=== PATIENT | male | born 1995 | race Caucasian/White ===

== ENCOUNTER 2021-03-07 09:19 | Emergency (ER) | payer OTHER, SELFPAY ==
[2021-03-07 09:28] VITALS: BP 149/92; PULSE 84; RESP 18; TEMP 36.7; O2SAT 97; BMI 24.4
--- NOTE | 2021-03-07 09:40 | ED_ITS ---
HPI - URI/Sore Throat General Chief Complaint: Upper Respiratory Symptoms Stated Complaint: flu like symptoms Time Seen by Provider: 03/07/21 09:37 Source: patient Mode of arrival: ambulatory History of Present Illness HPI Narrative: 25 y.o M with no significant PMH presenting to the ED with URI symptoms x 3 days. He endorses nasal congestion, cough, throat itching, body aches. He did vomit last Monday but has not had any recurrences. He took Ibuprofen 3 days ago and has not taken any other medications for his symptoms. He denies fevers, rash, abd pain, dysuria, vomiting, diarrhea. Related Data Previous Rx's Medication Instructions Recorded benzonatate 100 mg capsule 100 mg PO TID PRN 7 Days #21 cap 03/07/21 (Tessalvera Rosas) ibuprofen 600 mg tablet 600 mg PO Q6H PRN 7 Days #28 tab 03/07/21 Allergies Allergy/AdvReac Type Severity Reaction Status Date / Time No Known Allergies Allergy Unverified 04/02/20 18:48 Review of Systems Constitutional: Constitutional: Reports body ache(s), Denies fever(s) and Reports headache(s) Eyes: Eyes: Reports no additional eye complaints ENT: Reports headache(s), Reports nasal congestion and Denies sore throat Cardiovascular: Cardiovascular: Denies chest pain and Denies dyspnea Respiratory: Respiratory: Reports cough and Denies dyspnea Gastrointestinal: Gastrointestinal: Denies abdominal pain and Denies diarrhea Genitourinary: Genitourinary: Denies hematuria and Denies dysuria Musculoskeletal: Musculoskeletal: Reports myalgias and Denies arthralgias Neurologic: Reports headache(s) Psychiatric: Psychiatric: Reports no additional psychiatric complaints Hematologic/Lymphatic: Hematologic/Lymphatic: Denies easy bleeding Allergic/Immunologic: Allergic/Immunologic: Reports no additional allergic/immunologic complaints [facility] Past Medical History Medical History (Updated 03/07/21 @ 09:48 by STEVE Rico) No known health problems Social History Social History (Updated 03/07/21 @ 09:43 by STEVE Rico) Patient Tobacco Use Status: Current everyday Tobacco user Substance Use Type: Marijuana Advance Directives: No Advance Directives Information Provided: No Physical Exam Vital Signs: Vital Signs: Last Vital Signs Temp 98.0 F 03/07/21 09:28 Pulse 84 03/07/21 09:28 Resp 18 03/07/21 09:28 BP 149/92 H 03/07/21 09:28 Pulse Ox 97 03/07/21 09:28 Body Mass Index 24.4 Const: Other: sitting upright in chair General: cooperative Orientation/consciousness: patient oriented x3 HENMT: Other: head- normocephalic no facial swelling no pharyngeal erythema or tonsilar exudates, no uvula deviation, no oral sores no facial swelling Eyes: Pupils: Equal, round and reactive pupils present Neck: Neck: Yes full ROM, Yes no meningeal signs, Yes trachea midline and Yes supple Resp: Effort & Inspection: normal respiratory effort and able to speak in complete sentences Auscultation: clear to auscultation bilaterally Cardio: Rate: regular rate Rhythm: regular rhythm GI: Inspection: No distended Back/Spine/Pelvis: Other: normal ROM Skin: General skin exam: no rashes or lesions noted Neuro: General: patient oriented x3 and no meningeal signs Cranial nerves: Yes Equal, round and reactive pupils present Extrem: General: Yes full ROM Psych: Appearance: grossly normal MDM - URI/Sore Throat MDM Narrative Medical decision making narrative: 25 y.o. M presenting to the ED with URI symptoms x 3 days VS Stable, not toxic appearing, hemodynamically stable Will plan for COVID swab. Since pt. is not hypoxic, no adeventatious lung sounds, sound PNA. No evidence of strep pharyngitis, pharynx is not erythematous, no lesions. No signs of systemic illness. Pt. does have clear discharge from bilateral nares- doubt sinusitis. No c/o ear pain- doubt OM/OE. Will give supportive care with tylenol and ibuprofen. No signs of dehydration Return precautions provided Lab Data Lab results narrative: COVID swab negative. WIll discharge with symptomatic management. Labs: Lab Results 03/07/21 Range/Units 09:41 COVID-19 (JOVANNA) Negative (Negative) COVID-19 Clin Com See Note Discharge Plan Discharge Clinical Impression: Upper respiratory infection, Viral syndrome Patient Disposition: Home, Self-Care Instructions: Viral Syndrome (ED) Additional Instructions: Please return to the emergency department if your symptoms worsen, increased symptoms, fever, trouble breathing, chest pain, vomiting, abdominal pain, rash, weakness, dizziness, or any other concerning symptoms. Drink plenty of fluids and get rest. Keep yourself hydrated. Your COVID swab was negative. Prescriptions: New ibuprofen 600 mg tablet 600 mg PO Q6H PRN (Reason: pain) 7 Days Qty: 28 RF: 0 benzonatate [Tessalon Perles] 100 mg capsule 100 mg PO TID PRN (Reason: cough) 7 Days Qty: 21 RF: 0 Stand Alone Forms: Work/School Release Interventions: ED Discharge Assessment Last Done: 03/07/21 10:17 Discharge Date/Time: 03/07/21 10:18
[2021-03-07] MEDS: Ibuprofen 600 MG TABLET PO (09:44)
[2021-03-07] MEDS: Acetaminophen 325 MG TABLET 650 MG PO (09:45)
[2021-03-07 10:00] LABS: COVID-19 Test Negative (Negative); IDNOW Serial# 08D9AD1C
== END 2021-03-07 10:18 | disposition home or self-care (01) ==
PROVIDERS: Physician Assistant Medical; Emergency Provider Emergency Medicine
DX: J06.9 Acute upper respiratory infection, unspecified (principal); Z79.899 Other long term (current) drug therapy; Z20.822 Contact with and (suspected) exposure to COVID-19
CPT/HCPCS: 36415; 87635; 99283

== ENCOUNTER 2021-04-14 14:20 | Outpatient (REF) | payer OTHER, SELFPAY | END 2021-04-14 14:21 | disposition home or self-care (01) | LOC: HO.LAB 14:20 | PROVIDERS: Visit Provider Internal Medicine | DX: Z20.822 Contact with and (suspected) exposure to COVID-19 (principal) | CPT/HCPCS: C9803; U0003; U0005 ==

== ENCOUNTER 2021-07-24 19:23 | Emergency (ER) | payer OTHER, SELFPAY ==
[2021-07-24 19:34] VITALS: BP 116/73; BP 126/71; PULSE 105; PULSE 82; RESP 18; TEMP 37; O2SAT 98; BMI 29.0
[2021-07-24 19:58] LABS: COVID-19 Test Positive (Negative)
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
== END 2021-07-24 22:04 | disposition home or self-care (01) ==
PROVIDERS: Emergency Provider Emergency Medicine
DX: U07.1 COVID-19 (principal); S40.812A Abrasion of left upper arm, initial encounter; S40.811A Abrasion of right upper arm, initial encounter; X58.XXXA Exposure to other specified factors, initial encounter; R45.851 Suicidal ideations; R44.0 Auditory hallucinations; F17.200 Nicotine dependence, unspecified, uncomplicated; F12.90 Cannabis use, unspecified, uncomplicated; Y93.89 Activity, other specified; Y92.9 Unspecified place or not applicable; Y99.9 Unspecified external cause status
CPT/HCPCS: 87635; 99283

== ENCOUNTER 2022-04-27 09:20 | Emergency (ER) | payer OTHER, SELFPAY ==
[2022-04-27 09:23] VITALS: BP 127/73; PULSE 65; RESP 16; TEMP 36.6; O2SAT 99; BMI 28.3
--- NOTE | 2022-04-27 09:28 | ED_ITS ---
HPI - General Adult General Chief complaint: Nausea/Vomiting/Diarrhea Stated complaint: 1x week, upset stomach Time Seen by Provider: 04/27/22 09:28 Source: patient Mode of arrival: ambulatory Limitations: no limitations History of Present Illness HPI narrative: Patient is a 26 year old assigned male with a no reported medical history presenting to the emergency department today with nausea for the last week. Patient states that over the last week he has felt unwell with nausea. Patient states that his girlfriend has also been sick with nausea over the last week. Patient denies any dizziness, lightheadedness, abdominal pain, nausea, fever, chills, blurry vision, double vision, loss of vision, chest pain, difficulty breathing, shortness of breath, back pain, night sweats, pain with urination, i ncreased urinary frequency, increased urinary urgency, blood in his urine or stool, syncope or a near syncopal episode, recent trauma or falls, bowel incontinence, bladder incontinence, bowel retention, bladder retention, or any other complaints at this time. Onset (ago): week(s) (1) Severity: mild Severity scale (1-10): 2 Relieving factors: none Exacerbating factors: none Associated symptoms: nausea/vomiting Treatments prior to arrival: none Related Data Previous Rx's Medication Instructions Recorded benzonatate 100 mg capsule 100 mg PO TID PRN cough 7 days #21 03/07/21 (Jalyn Rosas) caps ibuprofen 600 mg tablet 600 mg PO Q6H PRN pain 7 days #28 03/07/21 tabs ondansetron 4 mg disintegrating 4 mg PO Q8H 3 days #9 tabs 04/27/22 tablet Allergies Allergy/AdvReac Type Severity Reaction Status Date / Time No Known Allergies Allergy Verified 04/27/22 09:23 Review of Systems Constitutional: Constitutional: Reports no additional constitutional complaints, Denies chills, Denies fever(s) and Denies night sweats Eyes: Eyes: Reports no additional eye complaints, Denies blurry vision, Denies change in vision, Denies diplopia, Denies eye discharge, Denies loss of vision and Denies eye pain ENT: Denies dizziness Cardiovascular: Cardiovascular: Reports no additional cardiovascular complaints, Denies chest pain, Denies lightheadedness, Denies Loss of Consciousness and Denies dyspnea Respiratory: Respiratory: Reports no additional respiratory complaints and Denies dyspnea Gastrointestinal: Gastrointestinal: Reports no additional gastrointestinal complaints, Denies abdominal pain, Denies melena, Denies hematochezia, Denies change in bowel habits, Denies change in stool character and Reports nausea Genitourinary: Genitourinary: Reports no additional male genitourinary complaints, Denies hematuria, Denies oliguria, Denies difficulty urinating, Denies dysuria, Denies urinary frequency, Denies urinary hesitancy, Denies urinary incontinence and Denies urinary urgency Musculoskeletal: Musculoskeletal: Reports no additional musculoskeletal complaints, Denies numbness and Denies tingling Neurologic: Denies dizziness, Denies loss of vision, Denies numbness and Denies tingling Psychiatric: Psychiatric: Reports no additional psychiatric complaints Endocrine: Endocrine: Reports no additional endocrine complaints Hematologic/Lymphatic: Hematologic/Lymphatic: Reports no additional hematologic/lymphatic complaints Allergic/Immunologic: Allergic/Immunologic: Reports no additional allergic/immunologic complaints PMFSH Past Medical History Attestation statement: The following information was validated with the patient. Source: old records reviewed Medical History No known health problems Social History Social History Patient Tobacco Use Status: Current everyday Tobacco user Substance Use Type: Marijuana Advance Directives: No Physical Exam ED Vital Signs: Vital Signs - 24 hr 04/27/22 09:23 Temperature 97.9 F Pulse Rate 65 Respiratory Rate 16 Blood Pressure 127/73 Pulse Oximetry 99 Oxygen Delivery Method Room Air BMI result Body Mass Index 28.3 Const General: cooperative, no acute distress, alert and awake Nutritional Appearance: well nourished Orientation/consciousness: patient oriented x3 Limitations: no limitations [facility] Head: Yes normal to inspection and Yes atraumatic Ears: hearing grossly normal bilaterally and external ears normal General nose exam: Normal external nose present, no nasal discharge noted and no epistaxis Face and sinus: Yes normal facial exam, No abrasion and No laceration Mouth: Normal oral and palatal mucosa present, no drooling and no muffled voice Eyes General: appearance normal, both eyes and all related structures Periorbital: periorbital findings normal Eyelids: Yes eyelids normal Conjunctivae: conjunctivae normal Pupils: Equal, round and reactive pupils present EOM: EOMs intact bilaterally Neck Neck: Yes normal visual inspection, Yes full ROM and Yes no lymphadenopathy Chest Chest palpation & inspection: normal inspection of the chest Resp Effort & Inspection: normal respiratory effort and able to speak in complete sentences Auscultation: clear to auscultation bilaterally Cardio Rate: regular rate Rhythm: regular rhythm GI Inspection: Yes normal to inspection Palpation (GI): Soft to palpation, not firm, nontender and no guarding Neuro General: patient oriented x3 and moves all extremities Cranial nerves: Yes Equal, round and reactive pupils present Cognition (Neuro): normal cognition Motor exam (neuro): 5/5 motor strength present throughout Sensory Exam: Normal double simultaneous stimulation for sensation Coordination: [id number] test normal Extrem General: Yes normal to inspection, Yes full ROM and Yes capillary refill normal Psych Appearance: grossly normal Mental Status: mental status grossly normal Affect: normal affect Attitude: cooperative Thought process: Normal thought process present Thought content: Normal thought content present Insight: Good insight present (Psych) Medical Decision Making MDM Narrative Medical decision making narrative: Patient is a 26 year old assigned male with a no medical history presenting to the emergency department today with nausea. Patient's physical exam was unremarkable. Patient's rapid COVID-19 test was negative. I explained my physical exam findings as well as all test results to the patient. I answered all questions asked by the patient. Patient received ODT Zofran which he stated helped his symptoms significantly. I stressed the importance of the patient taking his medication as prescribed. I stressed the importance of the patient following up with his primary care provider. I stressed the importance of the patient returning to the emergency department immediately if his symptoms were to worsen or if he were to develop any dizziness, shortness of breath, difficulty breathing, chest pain, blurry vision, loss of vision, nausea, vomiting, abdominal pain, fever, chills, back pain, or any other complaints. Patient verbalized agreement and understanding with this treatment plan and discharge. Medical Records Medical records reviewed: Yes I reviewed the patient's medical records. Lab Data Lab results reviewed: Yes I reviewed the patient's lab results. Labs: Lab Results 04/27/22 Range/Units 09:26 COVID-19 (JOVANNA) Negative (Negative) COVID-19 Clin Com See Note Discharge Plan Discharge Clinical Impression: Nausea Patient Disposition: Home, Self-Care Instructions: Acute Nausea and Vomiting (ED) Additional Instructions: Follow up with your primary care provider. Return to the emergency department immediately if your symptoms worsen or if you develop any dizziness, shortness of breath, difficulty breathing, chest pain, blurry vision, loss of vision, nausea, vomiting, abdominal pain, fever, chills, back pain, or any other complaints. Prescriptions: New ondansetron 4 mg tablet,disintegrating 4 mg PO Q8H 3 Days Qty: 9 0RF No Action ibuprofen 600 mg tablet 600 mg PO Q6H PRN (Reason: pain) 7 Days Qty: 28 0RF benzonatate [Tessalon Perles] 100 mg capsule 100 mg PO TID PRN (Reason: cough) 7 Days Qty: 21 0RF Referrals: [facility] [Provider Group] (Call to establish and follow up with a primary care provider. If you have a primary care provider, please follow up with them. ) [facility] [[facility]] (Call to establish and follow up with a primary care provider. If you have a primary care provider, please follow up with them. ) [facility] [[facility]] (Call to establish and follow up with a primary care provider. If you have a primary care provider, please follow up with them. ) Stand Alone Forms: Work/School Release Interventions: ED Discharge Assessment Last Done: 04/27/22 10:14 Discharge Date/Time: 04/27/22 10:16 Print Language: Kinyarwanda
[2022-04-27 09:45] LABS: COVID-19 Test Negative (Negative); IDNOW Serial# 16C4AD1C
[2022-04-27] MEDS: Ondansetron ODT 4 MG TAB.RAPDIS TRANSLINGU (10:06)
== END 2022-04-27 10:16 | disposition home or self-care (01) ==
PROVIDERS: Emergency Provider Emergency Medicine
DX: R11.2 Nausea with vomiting, unspecified (principal); Z79.899 Other long term (current) drug therapy; Z20.822 Contact with and (suspected) exposure to COVID-19
CPT/HCPCS: 87635; 99282; 99283

== ENCOUNTER 2022-04-27 15:38 | Emergency (ER) | payer OTHER, SELFPAY ==
[2022-04-27 17:28] VITALS: BP 135/66; PULSE 77; RESP 16; TEMP 36.7; O2SAT 99; BMI 28.3
--- NOTE | 2022-04-27 17:59 | ED_ITS ---
HPI - General Adult General Chief complaint: General Medical Stated complaint: ? STD Check Time Seen by Provider: 04/27/22 17:54 Source: patient Mode of arrival: ambulatory Limitations: no limitations History of Present Illness HPI narrative: 26-year-old male presents to the ER for evaluation after he was exposed to Trichomonas. He states his girlfriend just tested positive for Trichomonas today. She was negative for all other STIs. She was there getting evaluated for a miscarriage. Patient denies any urethral discharge, dysuria, testicular pain, genital lesions. He was here earlier for nausea and diarrhea. He was tested for COVID and sent home. He reports no longer having diarrhea or vomiting because he has nothing in him. No fevers. No concern for any other STI. MD complaint: Possible STI Onset (ago): unknown Location: abdomen Radiation: non-radiation Severity: moderate Pain Consistency: intermittent Relieving factors: none Exacerbating factors: eating Associated symptoms: loss of appetite, malaise and nausea/vomiting Treatments prior to arrival: none Related Data Previous Rx's Medication Instructions Recorded benzonatate 100 mg capsule 100 mg PO TID PRN cough 7 days #21 03/07/21 (Tessalon Ralph) caps ibuprofen 600 mg tablet 600 mg PO Q6H PRN pain 7 days #28 03/07/21 tabs loperamide 2 mg capsule (Imodium 2 mg PO Q6H PRN loose stool #14 04/27/22 A-D) caps ondansetron 4 mg disintegrating 4 mg PO Q8H 3 days #9 tabs 04/27/22 tablet ondansetron 4 mg disintegrating 4 mg PO Q8H PRN nausea and 04/27/22 tablet vomiting #10 tabs Allergies Allergy/AdvReac Type Severity Reaction Status Date / Time No Known Allergies Allergy Verified 04/27/22 09:23 Review of Systems Review of Systems: Constitutional: No Fever, No Chills ENT/Mouth: No sore throat, No Rhinorrhea, No Swallowing Difficulty Cardiovascular: No Chest Pain, No SOB Respiratory: No Cough, No Sputum Gastrointestinal: + Nausea, + Vomiting, + Diarrhea, No abdominal Pain, No Hematochezia, No Melena Genitourinary: No Dysuria, No Urinary Frequency, No Hematuria Musculoskeletal: No joint pain, No Myalgias Skin: No Skin Lesions, No rash Neuro: No Weakness, No Dizziness, No Headache Psych: +Anxiety/Panic, No Depression Heme/Lymph: No Bruising, No Lymphadenopathy PMFSH Past Medical History Medical History No known health problems Social History Social History Patient Tobacco Use Status: Current everyday Tobacco user Substance Use Type: Marijuana Advance Directives: No Advance Directives Information Provided: No Physical Exam ED Vital Signs: Vital Signs - 24 hr 04/27/22 17:28 Temperature 98.1 F Pulse Rate 77 Respiratory Rate 16 Blood Pressure 135/66 Pulse Oximetry 99 Oxygen Delivery Method Room Air BMI result Body Mass Index 28.3 Course Course Course Narrative: 26-year-old male presents to the ER for evaluation of possible Trichomonas after his girlfriend tested positive for this earlier today. He is asymptomatic aside from nausea, vomiting and diarrhea. Unlikely to be related to trichomoniasis. His abdominal exam is benign. Will treat empirically for Trichomonas with flagyl 2g x1.. Will give p.o. trial here. If unable to tolerate will consider further testing and imaging. He is declining need for treatment of gonorrhea and chlamydia. He states his girlfriend was negative for these. Medical Decision Making Lab Data Labs: Lab Results 04/27/22 Range/Units 18:03 Urine Color Yellow Urine Appearance Clear Urine pH 7.0 (5.0-9.0) Ur Specific [place] >= 1.030 H (1.005-1.025) Urine Protein Negative (Neg-Trace) mg/dL Urine Glucose (UA) Negative (Negative) mg/dL Urine Ketones Trace (Negative) mg/dL Urine Blood Negative (Negative) Urine Nitrite Negative (Negative) Ur Leukocyte Esterase Negative (Negative) Discharge Plan Discharge Clinical Impression: Trichomonas exposure Patient Disposition: Home, Self-Care Instructions: Trichomoniasis (ED) Additional Instructions: You were treated for possible trichomonas today. The one dose of antibiotics you were given today should treat the infection. You were also tested for gonorrhea and chlamydia. We will not have the results of this for the next couple of days. If either of these are positive we will call you was started on the appropriate antibiotics. Recommending abstaining from sexual activity while these tests are pending. Stick to a bland diet while you are not feeling well. Take the prescribed loperamide as needed for loose stool. You can take the prescribed Zofran as needed for nausea. Rest and stay hydrated. If you develop new or worsening symptoms call 911 or come back to the ER for further evaluation. Prescriptions: New ondansetron 4 mg tablet,disintegrating 4 mg PO Q8H PRN (Reason: nausea and vomiting) Qty: 10 0RF loperamide [Imodium A-D] 2 mg capsule 2 mg PO Q6H PRN (Reason: loose stool) Qty: 14 0RF No Action ibuprofen 600 mg tablet 600 mg PO Q6H PRN (Reason: pain) 7 Days Qty: 28 0RF benzonatate [Tessalon Perles] 100 mg capsule 100 mg PO TID PRN (Reason: cough) 7 Days Qty: 21 0RF ondansetron 4 mg tablet,disintegrating 4 mg PO Q8H 3 Days Qty: 9 0RF
[2022-04-27 18:09] LABS: Appearance Urine Clear; Color Urine Yellow; Glucose Urine UA Negative (Negative); Leukocyte Esterase Urine Negative (Negative); Nitrite Urine Negative (Negative); Specific Gravity - Urine >= 1.030 (1.005-1.025); Urine Blood Negative (Negative); Urine Ketones Trace mg/dL (Negative); Urine Protein Negative (Neg-Trace)
[2022-04-27] MEDS: Ondansetron ODT 4 MG TAB.RAPDIS TRANSLINGU (18:21)
[2022-04-27] MEDS: metroNIDAZOLE 500 MG TABLET 2000 MG PO (19:00)
[2022-04-28 03:06] LABS: CT PCR NOT DETECTED (Not Detect.); NG PCR NOT DETECTED (Not Detect.)
== END 2022-04-27 19:17 | disposition home or self-care (01) ==
PROVIDERS: Physician Assistant; Emergency Provider Emergency Medicine
DX: Z20.2 Contact with and (suspected) exposure to infections with a predominantly sexual mode of transmission (principal); Z79.899 Other long term (current) drug therapy; F17.200 Nicotine dependence, unspecified, uncomplicated; Z71.6 Tobacco abuse counseling
CPT/HCPCS: 81003; 87491; 87591; 99282; 99283

== ENCOUNTER 2022-05-11 22:00 | Emergency (ER) | payer OTHER, SELFPAY ==
[2022-05-11 22:14] VITALS: BP 140/93; PULSE 68; RESP 17; TEMP 37.2; O2SAT 98; BMI 29.7
[2022-05-11 22:26] LABS: MANUAL DIFF FLAG NO
[2022-05-11 22:28] LABS: Basophils Percent Auto 0.4 % (0-2); Eosinophils Absolute Auto 0.2 X10*3/uL (0.0-0.4); Eosinophils Percent Auto 2.3 % (0-4); Hematocrit 44.1 % (42.0-52.0); Hemoglobin 14.8 g/dl (14.0-18.0); Imm Gran Abs Auto 0.03 X10*3/uL (0.00-0.03); Imm Gran Pct Auto 0.3 % (0.0-0.4); Lymphocytes Absolute Auto 3.3 X10*3/uL (1.2-4.9); Lymphocytes Percent Auto 31.4 % (20-40); Mean Corpuscular HGB Conc 33.6 g/dl (31.0-36.0); Mean Corpuscular Hemoglobin 29.7 pg (27.0-33.0); Mean Corpuscular Volume 88.4 fL (80.0-98.0); Mean Platelet Volume 9.3 fL (9.4-12.4); Monocytes Absolute Auto 0.6 X10*3/uL (0.1-1.2); Neutrophils Absolute Auto 6.3 x10*3/uL (2.0-8.3); Neutrophils Percent Auto 59.6 % (45-73); Platelet Count 317 X10*3/uL (160-400); Red Blood Count 4.99 X10*6/uL (4.60-5.80); Red Cell Distribution Width 12.9 % (11.0-16.0); White Blood Count 10.6 X10*3/uL (4.8-10.8)
[2022-05-11 22:44] LABS: Alanine Aminotransferase 15 U/L (0-40); Albumin Level 4.3 g/dL (3.5-5.0); Alkaline Phosphatase 76 U/L (39-117); Anion Gap 16 (12-20); Aspartate Amino Transferase 16 U/L (5-37); Bilirubin Total 0.4 mg/dL (0.0-1.0); Blood Urea Nitrogen 12 mg/dL (9-16); Calcium 9.1 mg/dL (8.4-10.2); Carbon Dioxide 23 mmol/L (22-29); Chloride 105 mmol/L (96-108); Creatinine Clr Calc Pharmacy 133.7; Estimated Glomerular Filt Rate > 60; Glucose Random 96 mg/dL (60-115); Sodium 140 mmol/L (135-145); Total Protein 7.1 g/dL (6.5-8.0)
[2022-05-11 23:09] LABS: COVID-19 Test Positive (Negative)
[2022-05-12] VITALS: BP 132/75; PULSE 72; RESP 18; TEMP 36.4; O2SAT 98
--- NOTE | 2022-05-12 00:12 | ED_ITS ---
HPI - URI/Sore Throat General Chief Complaint: Fever Stated Complaint: pain all over body Time Seen by Provider: 05/11/22 23:49 Source: patient Mode of arrival: ambulatory Limitations: no limitations History of Present Illness HPI Narrative: Patient is a 26-year-old male who presents to the emergency department for evaluation of body aches, subjective fevers, chills, nasal congestion, cough, lack of appetite, nausea. Symptoms started 2 days ago initially with body aches, additional symptoms began yesterday. Patient denies any known sick contacts. States he has been vaccinated for COVID-19 x 2, has had 2 prior COVID-19 infections. Related Data Previous Rx's Medication Instructions Recorded benzonatate 100 mg capsule 100 mg PO TID PRN cough 7 days #21 03/07/21 (Tespetty Rosas) caps ibuprofen 600 mg tablet 600 mg PO Q6H PRN pain 7 days #28 03/07/21 tabs loperamide 2 mg capsule (Imodium 2 mg PO Q6H PRN loose stool #14 04/27/22 A-D) caps ondansetron 4 mg disintegrating 4 mg PO Q8H 3 days #9 tabs 04/27/22 tablet ondansetron 4 mg disintegrating 4 mg PO Q8H PRN nausea and 04/27/22 tablet vomiting #10 tabs Allergies Allergy/AdvReac Type Severity Reaction Status Date / Time No Known Allergies Allergy Verified 04/27/22 09:23 Review of Systems Review of Systems: Constitutional: Positive subjective fever. Positive chills. No weakness. Positive fatigue. Positive body aches ENT/ Mouth: No Ear Pain, positive Nasal Congestion, positive sore throat, No Rhinorrhea, No Swallowing Difficulty Skin: No rash or itching. Cardiovascular: No chest pain. No palpitations. Respiratory: No shortness of breath. Positive cough. No sputum production. Gastrointestinal: No nausea. No vomiting. No diarrhea. No abdominal pain. Genitourinary: No burning micturition. No urinary frequency. Neurologic: No headache. No dizziness. No syncope. No numbness or tingling in the extremities. Musculoskeletal: Positive body aches Yes all other systems are reviewed and are negative PMFSH Past Medical History Attestation statement: The following information was validated with the patient. Source: old records reviewed Medical History No known health problems Social History Social History Patient Tobacco Use Status: Current everyday Tobacco user Substance Use Type: Marijuana Advance Directives: No Advance Directives Information Provided: No Physical Exam Vital Signs: Vital Signs: Last Vital Signs Temp 98.9 F 05/11/22 22:14 Pulse 68 05/11/22 22:14 Resp 17 05/11/22 22:14 BP 140/93 H 05/11/22 22:14 Pulse Ox 98 05/11/22 22:14 O2 Del Method 05/11/22 22:14 BMI result Body Mass Index 29.7 Appearance: Alert.?Oriented to person, place and time. No acute distress.?Normal affect. Eyes: Pupils equal, round and reactive to light.? ENT: TM normal bilaterally. Pharynx normal.?? Neck: Normal inspection.? Neck supple.??No cervical adenopathy CVS: Heart sounds normal. Normal heart rate and rhythm.? Pulses normal.?? Respiratory: No respiratory distress.? Lung sounds clear to auscultation bilaterally?? Abdomen: Soft and non-tender. Normoactive bowel sounds. Skin: Skin warm and dry.? Normal skin color.? ? Extremities: No lower extremity edema.? Neuro: Moves all extremities spontaneously. Sensation intact bilaterally. No motor deficits. Ambulates with normal steady gait. Course Course Course Narrative: Patient is a a 26-year-old male with no significant past medical history, presenting for evaluation of viral symptoms. COVID-19 testing is positive. Appears fatigued, afebrile, no tachycardia or tachypnea/hypoxia. Speaking clear full sentences, ambulatory with steady gait. CBC and CMP are overall unremarkable. Physical exam is overall unremarkable. Offered Paxlovid, patient declines. Discussed conservative treatment including rest, hydration, Tylenol/ibuprofen as needed for fever and body aches, saline nasal spray, humidifier, [id number] cold medication. Advised to follow-up with primary care provider as needed, discussed reasons to return back to the emergency department. All questions were answered. Patient discharged home in stable condition. Provided with a return to work note. MDM - URI/Sore Throat Medical Records Attestation: I reviewed the patient's medical records. Lab Data Attestation: I reviewed the patient's lab results. Result diagrams: 05/11/22 22:20 05/11/22 22:20 Labs: Lab Results 05/11/22 05/11/22 05/11/22 Range/Units 22:20 22:20 22:20 WBC 10.6 (4.8-10.8) X10*3/uL RBC 4.99 (4.60-5.80) X10*6/uL Hgb 14.8 (14.0-18.0) g/dl Hct 44.1 (42.0-52.0) % MCV 88.4 (80.0-98.0) fL MCH 29.7 (27.0-33.0) pg MCHC 33.6 (31.0-36.0) g/dl RDW 12.9 (11.0-16.0) % Plt Count 317 (160-400) X10*3/uL MPV 9.3 L (9.4-12.4) fL Immature Gran % (Auto) 0.3 (0.0-0.4) % Neut % (Auto) 59.6 (45-73) % Lymph % (Auto) 31.4 (20-40) % [place] % (Auto) 6.0 (2-11) % Eos % (Auto) 2.3 (0-4) % Baso % (Auto) 0.4 (0-2) % Lymph # (Auto) 3.3 (1.2-4.9) X10*3/uL [place] # (Auto) 0.6 (0.1-1.2) X10*3/uL Eos # (Auto) 0.2 (0.0-0.4) X10*3/uL Baso # (Auto) 0.0 (0.0-0.2) X10*3/uL Abs Immat Gran (auto) 0.03 (0.00-0.03) X10*3/uL Absolute Neuts (auto) 6.3 (2.0-8.3) x10*3/uL Absolute Nucleated RBC 0.000 (0.0-0.012) X10*3/uL Nucleated RBC % (auto) 0.0 (0.0-0.2) /100WBC Sodium 140 (135-145) mmol/L Potassium 4.0 (3.3-5.1) mmol/L Chloride 105 (96-108) mmol/L Carbon Dioxide 23 (22-29) mmol/L Anion Gap 16 (12-20) BUN 12 (9-16) mg/dL Creatinine 1.06 (0.5-1.4) mg/dL Estim Creat Clear Calc 133.7 Estimated GFR > 60 Random Glucose 96 (60-115) mg/dL Calcium 9.1 (8.4-10.2) mg/dL Total Bilirubin 0.4 (0.0-1.0) mg/dL AST 16 (5-37) U/L ALT 15 (0-40) U/L Alkaline Phosphatase 76 (39-117) U/L Total Protein 7.1 (6.5-8.0) g/dL Albumin 4.3 (3.5-5.0) g/dL COVID-19 (JOVANNA) Cancelled COVID-19 Clin Com Cancelled 05/11/22 Range/Units 22:42 WBC (4.8-10.8) X10*3/uL RBC (4.60-5.80) X10*6/uL Hgb (14.0-18.0) g/dl Hct (42.0-52.0) % MCV (80.0-98.0) fL MCH (27.0-33.0) pg MCHC (31.0-36.0) g/dl RDW (11.0-16.0) % Plt Count (160-400) X10*3/uL MPV (9.4-12.4) fL Immature Gran % (Auto) (0.0-0.4) % Neut % (Auto) (45-73) % Lymph % (Auto) (20-40) % [place] % (Auto) (2-11) % Eos % (Auto) (0-4) % Baso % (Auto) (0-2) % Lymph # (Auto) (1.2-4.9) X10*3/uL [place] # (Auto) (0.1-1.2) X10*3/uL Eos # (Auto) (0.0-0.4) X10*3/uL Baso # (Auto) (0.0-0.2) X10*3/uL Abs Immat Gran (auto) (0.00-0.03) X10*3/uL Absolute Neuts (auto) (2.0-8.3) x10*3/uL Absolute Nucleated RBC (0.0-0.012) X10*3/uL Nucleated RBC % (auto) (0.0-0.2) /100WBC Sodium (135-145) mmol/L Potassium (3.3-5.1) mmol/L Chloride (96-108) mmol/L Carbon Dioxide (22-29) mmol/L Anion Gap (12-20) BUN (9-16) mg/dL Creatinine (0.5-1.4) mg/dL Estim Creat Clear Calc Estimated GFR Random Glucose (60-115) mg/dL Calcium (8.4-10.2) mg/dL Total Bilirubin (0.0-1.0) mg/dL AST (5-37) U/L ALT (0-40) U/L Alkaline Phosphatase (39-117) U/L Total Protein (6.5-8.0) g/dL Albumin (3.5-5.0) g/dL COVID-19 (JOVANNA) Positive A COVID-19 Clin Com See Note Discharge Plan Discharge Clinical Impression: COVID-19 Patient Disposition: Home, Self-Care Instructions: COVID-19 (Coronavirus Disease 2019) (ED) Additional Instructions: Be sure to rest, stay well hydrated drinking plenty of fluids, eat small frequent meals. Tylenol/ibuprofen can be used as needed for fever/pain. [id number] cold medications may be helpful as well for symptoms. Saline nasal spray, humidifier may be helpful for nasal congestion. You were offered treatment with Paxlovid, under emergency use authorization and you declined. You may return to the emergency department with any new or worsening symptoms or concerns. Follow-up with your primary care provider as needed. Should remain out of school/ work for at least 5 days with soonest return date 05/15/2022 given that symptoms are improving and you have been without a fever for 24 hours without the use of Tylenol or ibuprofen. Prescriptions: No Action ibuprofen 600 mg tablet 600 mg PO Q6H PRN (Reason: pain) 7 Days Qty: 28 0RF benzonatate [Tessalon Perles] 100 mg capsule 100 mg PO TID PRN (Reason: cough) 7 Days Qty: 21 0RF ondansetron 4 mg tablet,disintegrating 4 mg PO Q8H PRN (Reason: nausea and vomiting) Qty: 10 0RF loperamide [Imodium A-D] 2 mg capsule 2 mg PO Q6H PRN (Reason: loose stool) Qty: 14 0RF ondansetron 4 mg tablet,disintegrating 4 mg PO Q8H 3 Days Qty: 9 0RF Stand Alone Forms: Work/School Release
== END 2022-05-12 00:31 | disposition home or self-care (01) ==
PROVIDERS: Emergency Provider Emergency Medicine Emergency Medical Services
DX: U07.1 COVID-19 (principal); R50.9 Fever, unspecified; M79.10 Myalgia, unspecified site; Z79.899 Other long term (current) drug therapy
CPT/HCPCS: 36415; 80053; 85025; 87635; 99283

== ENCOUNTER 2022-05-20 04:08 | Emergency (ER) | payer OTHER, SELFPAY ==
[2022-05-20 04:16] VITALS: BP 135/83; PULSE 93; RESP 15; TEMP 36.9; O2SAT 99; BMI 29.0
[2022-05-20 04:32] VITALS: BP 119/68; PULSE 79; RESP 17; TEMP 36.7; O2SAT 97
[2022-05-20 04:41] LABS: MANUAL DIFF FLAG NO
[2022-05-20 04:42] LABS: Basophils Percent Auto 0.3 % (0-2); Eosinophils Absolute Auto 0.1 X10*3/uL (0.0-0.4); Hematocrit 44.8 % (42.0-52.0); Hemoglobin 15.2 g/dl (14.0-18.0); Imm Gran Abs Auto 0.04 X10*3/uL (0.00-0.03); Imm Gran Pct Auto 0.3 % (0.0-0.4); Lymphocytes Absolute Auto 2.2 X10*3/uL (1.2-4.9); Lymphocytes Percent Auto 19.3 % (20-40); Mean Corpuscular HGB Conc 33.9 g/dl (31.0-36.0); Mean Corpuscular Hemoglobin 29.9 pg (27.0-33.0); Mean Corpuscular Volume 88.2 fL (80.0-98.0); Mean Platelet Volume 9.4 fL (9.4-12.4); Monocytes Absolute Auto 1.2 X10*3/uL (0.1-1.2); Monocytes Percent Auto 10.4 % (2-11); Neutrophils Absolute Auto 7.9 x10*3/uL (2.0-8.3); Neutrophils Percent Auto 68.7 % (45-73); Platelet Count 298 X10*3/uL (160-400); Red Blood Count 5.08 X10*6/uL (4.60-5.80); Red Cell Distribution Width 12.8 % (11.0-16.0); White Blood Count 11.5 X10*3/uL (4.8-10.8)
--- NOTE | 2022-05-20 04:43 | PC.NURSE ---
Patient arrives endorsing generalized body aches, nausea, and emesis at home. Last emesis about 20 minutes prior to arrival. Patient states over 2 weeks ago he had COVID and has been feeling under the weather since, with decreased PO intake. Abdomen is soft and nontender, vitals stable.
--- NOTE | 2022-05-20 04:57 | ED_ITS ---
HPI - Abdominal Pain General Chief Complaint: Abdominal Pain Stated Complaint: Vomiting/Headache Time Seen by Provider: 05/20/22 04:37 Source: patient Mode of arrival: ambulatory History of Present Illness HPI narrative: Patient 26 years old with history of cannabis abuse frequent vomiting and abdominal pain had COVID 10 days ago patient does get abdominal cramps with vomiting for last few months no diarrhea no fever no chills Related Data Previous Rx's Medication Instructions Recorded benzonatate 100 mg capsule 100 mg PO TID PRN cough 7 days #21 03/07/21 (Tespetty Rosas) caps ibuprofen 600 mg tablet 600 mg PO Q6H PRN pain 7 days #28 03/07/21 tabs loperamide 2 mg capsule (Imodium 2 mg PO Q6H PRN loose stool #14 04/27/22 A-D) caps ondansetron 4 mg disintegrating 4 mg PO Q8H 3 days #9 tabs 04/27/22 tablet ondansetron 4 mg disintegrating 4 mg PO Q8H PRN nausea and 04/27/22 tablet vomiting #10 tabs ondansetron 4 mg disintegrating 4 mg PO Q6-8H PRN nausea and 05/20/22 tablet vomiting #7 tabs Allergies Allergy/AdvReac Type Severity Reaction Status Date / Time No Known Allergies Allergy Verified 05/20/22 04:20 [facility] Past Medical History Medical History No known health problems Social History Social History Patient Tobacco Use Status: Current everyday Tobacco user Substance Use Type: Marijuana Advance Directives: No Advance Directives Information Provided: Yes Physical Exam ED Vital Signs: Vital Signs - 24 hr 05/20/22 04:16 05/20/22 04:32 Temperature 98.5 F 98.0 F Pulse Rate 93 79 Respiratory Rate 15 17 Blood Pressure 135/83 119/68 Pulse Oximetry 99 97 Oxygen Delivery Method Room Air Room Air BMI result Body Mass Index 29.0 MDM - Abdominal Pain Lab Data Result diagrams: 05/20/22 04:35 05/20/22 04:35 Labs: Lab Results 05/20/22 05/20/22 05/20/22 Range/Units 04:35 04:35 05:15 WBC 11.5 H (4.8-10.8) X10*3/uL RBC 5.08 (4.60-5.80) X10*6/uL Hgb 15.2 (14.0-18.0) g/dl Hct 44.8 (42.0-52.0) % MCV 88.2 (80.0-98.0) fL MCH 29.9 (27.0-33.0) pg MCHC 33.9 (31.0-36.0) g/dl RDW 12.8 (11.0-16.0) % Plt Count 298 (160-400) X10*3/uL MPV 9.4 (9.4-12.4) fL Immature Gran % (Auto) 0.3 (0.0-0.4) % Neut % (Auto) 68.7 (45-73) % Lymph % (Auto) 19.3 L (20-40) % [place] % (Auto) 10.4 (2-11) % Eos % (Auto) 1.0 (0-4) % Baso % (Auto) 0.3 (0-2) % Lymph # (Auto) 2.2 (1.2-4.9) X10*3/uL [place] # (Auto) 1.2 (0.1-1.2) X10*3/uL Eos # (Auto) 0.1 (0.0-0.4) X10*3/uL Baso # (Auto) 0.0 (0.0-0.2) X10*3/uL Abs Immat Gran (auto) 0.04 H (0.00-0.03) X10*3/uL Absolute Neuts (auto) 7.9 (2.0-8.3) x10*3/uL Absolute Nucleated RBC 0.000 (0.0-0.012) X10*3/uL Nucleated RBC % (auto) 0.0 (0.0-0.2) /100WBC Sodium 139 (135-145) mmol/L Potassium 3.8 (3.3-5.1) mmol/L Chloride 101 (96-108) mmol/L Carbon Dioxide 22 (22-29) mmol/L Anion Gap 20 (12-20) BUN 19 H D (9-16) mg/dL Creatinine 1.21 (0.5-1.4) mg/dL Estim Creat Clear Calc 115.9 Estimated GFR > 60 Random Glucose 90 (60-115) mg/dL Calcium 9.8 D (8.4-10.2) mg/dL Total Bilirubin 0.9 (0.0-1.0) mg/dL AST 32 D (5-37) U/L ALT 17 (0-40) U/L Alkaline Phosphatase 79 (39-117) U/L Total Protein 7.7 (6.5-8.0) g/dL Albumin 4.7 (3.5-5.0) g/dL Lipase 11 (8-78) U/L Urine Color Dark Yellow Urine Appearance Clear Urine pH 5.5 (5.0-9.0) Ur Specific [place] >= 1.030 H (1.005-1.025) Urine Protein 30 (1+) H (Neg-Trace) mg/dL Urine Glucose (UA) Negative (Negative) mg/dL Urine Ketones 15 (Negative) mg/dL Urine Blood Negative (Negative) Urine Nitrite Negative (Negative) Ur Leukocyte Esterase Negative (Negative) Urine RBC 0-2 (0-2) /HPF Urine WBC 0-5 (0-5) /HPF Ur Squamous Epith Cells 0-2 (0-2) /HPF Urine Bacteria None Seen (None Seen) Hyaline Casts 0-2 (0-2) /LPF Urine Opiates Screen (Not Detect) Urine Fentanyl Screen (Not Detect) Ur Barbiturates Screen (Not Detect) Ur Phencyclidine Scrn (Not Detect) Ur Amphetamines Screen (Not Detect) U Benzodiazepines Scrn (Not Detect) Urine Cocaine Screen (Not Detect) U Marijuana (THC) Screen (Not Detect) 05/20/22 Range/Units 05:15 WBC (4.8-10.8) X10*3/uL RBC (4.60-5.80) X10*6/uL Hgb (14.0-18.0) g/dl Hct (42.0-52.0) % MCV (80.0-98.0) fL MCH (27.0-33.0) pg MCHC (31.0-36.0) g/dl RDW (11.0-16.0) % Plt Count (160-400) X10*3/uL MPV (9.4-12.4) fL Immature Gran % (Auto) (0.0-0.4) % Neut % (Auto) (45-73) % Lymph % (Auto) (20-40) % [place] % (Auto) (2-11) % Eos % (Auto) (0-4) % Baso % (Auto) (0-2) % Lymph # (Auto) (1.2-4.9) X10*3/uL [place] # (Auto) (0.1-1.2) X10*3/uL Eos # (Auto) (0.0-0.4) X10*3/uL Baso # (Auto) (0.0-0.2) X10*3/uL Abs Immat Gran (auto) (0.00-0.03) X10*3/uL Absolute Neuts (auto) (2.0-8.3) x10*3/uL Absolute Nucleated RBC (0.0-0.012) X10*3/uL Nucleated RBC % (auto) (0.0-0.2) /100WBC Sodium (135-145) mmol/L Potassium (3.3-5.1) mmol/L Chloride (96-108) mmol/L Carbon Dioxide (22-29) mmol/L Anion Gap (12-20) BUN (9-16) mg/dL Creatinine (0.5-1.4) mg/dL Estim Creat Clear Calc Estimated GFR Random Glucose (60-115) mg/dL Calcium (8.4-10.2) mg/dL Total Bilirubin (0.0-1.0) mg/dL AST (5-37) U/L ALT (0-40) U/L Alkaline Phosphatase (39-117) U/L Total Protein (6.5-8.0) g/dL Albumin (3.5-5.0) g/dL Lipase (8-78) U/L Urine Color Urine Appearance Urine pH (5.0-9.0) Ur Specific [place] (1.005-1.025) Urine Protein (Neg-Trace) mg/dL Urine Glucose (UA) (Negative) mg/dL Urine Ketones (Negative) mg/dL Urine Blood (Negative) Urine Nitrite (Negative) Ur Leukocyte Esterase (Negative) Urine RBC (0-2) /HPF Urine WBC (0-5) /HPF Ur Squamous Epith Cells (0-2) /HPF Urine Bacteria (None Seen) Hyaline Casts (0-2) /LPF Urine Opiates Screen Not Detected (Not Detect) Urine Fentanyl Screen Not Detected (Not Detect) Ur Barbiturates Screen Not Detected (Not Detect) Ur Phencyclidine Scrn Not Detected (Not Detect) Ur Amphetamines Screen Not Detected (Not Detect) U Benzodiazepines Scrn Not Detected (Not Detect) Urine Cocaine Screen Not Detected (Not Detect) U Marijuana (THC) Screen POSITIVE H (Not Detect) Discharge Plan Discharge Clinical Impression: Cannabis hyperemesis syndrome concurrent with and due to cannabis abuse Patient Disposition: Home, Self-Care Instructions: Cannabis Abuse (ED), Cyclic Vomiting Syndrome (ED) Additional Instructions: Stop using cannabis and vaping Medicine for nausea advised Follow with PCP Prescriptions: New ondansetron 4 mg tablet,disintegrating 4 mg PO Q6-8H PRN (Reason: nausea and vomiting) Qty: 7 0RF No Action ibuprofen 600 mg tablet 600 mg PO Q6H PRN (Reason: pain) 7 Days Qty: 28 0RF benzonatate [Tessalon Perles] 100 mg capsule 100 mg PO TID PRN (Reason: cough) 7 Days Qty: 21 0RF ondansetron 4 mg tablet,disintegrating 4 mg PO Q8H PRN (Reason: nausea and vomiting) Qty: 10 0RF loperamide [Imodium A-D] 2 mg capsule 2 mg PO Q6H PRN (Reason: loose stool) Qty: 14 0RF ondansetron 4 mg tablet,disintegrating 4 mg PO Q8H 3 Days Qty: 9 0RF
[2022-05-20] MEDS: Ondansetron ODT 4 MG TAB.RAPDIS TRANSLINGU (05:08)
[2022-05-20] MEDS: LORazepam 1 MG TABLET PO (05:08)
[2022-05-20 05:14] LABS: Alanine Aminotransferase 17 U/L (0-40); Albumin Level 4.7 g/dL (3.5-5.0); Alkaline Phosphatase 79 U/L (39-117); Anion Gap 20 (12-20); Aspartate Amino Transferase 32 U/L (5-37); Bilirubin Total 0.9 mg/dL (0.0-1.0); Blood Urea Nitrogen 19 mg/dL (9-16); Calcium 9.8 mg/dL (8.4-10.2); Carbon Dioxide 22 mmol/L (22-29); Chloride 101 mmol/L (96-108); Creatinine Clr Calc Pharmacy 115.9; Estimated Glomerular Filt Rate > 60; Glucose Random 90 mg/dL (60-115); Lipase 11 U/L (8-78); Potassium 3.8 mmol/L (3.3-5.1); Sodium 139 mmol/L (135-145); Total Protein 7.7 g/dL (6.5-8.0)
[2022-05-20 05:22] LABS: Appearance Urine Clear; Color Urine Dark Yellow; Glucose Urine UA Negative (Negative); Leukocyte Esterase Urine Negative (Negative); Nitrite Urine Negative (Negative); PH 5.5 (5.0-9.0); Specific Gravity - Urine >= 1.030 (1.005-1.025); UMIC TRIGGER UACC YES; Urine Blood Negative (Negative); Urine Ketones 15 mg/dL (Negative); Urine Protein 30 (1+) mg/dL (Neg-Trace)
[2022-05-20 05:30] LABS: Bacteria Urine None Seen (None Seen); Hyaline Casts Urine 0-2 /LPF (0-2); RBC Urine 0-2 /HPF (0-2); Squamous Epithelial Cell Urine 0-2 /HPF (0-2); WBC Urine 0-5 /HPF (0-5)
[2022-05-20 05:37] LABS: Amphetamine Screen Urine Not Detected (Not Detect); Barbiturates, Urine Not Detected (Not Detect); Benzodiazepines Screen Urine Not Detected (Not Detect); Cannabinoid Screen Urine POSITIVE (Not Detect); Cocaine Screen Urine Not Detected (Not Detect); Fentanyl, urine Not Detected (Not Detect); Opiate Screen Urine Not Detected (Not Detect); Phencyclidine Screen Urine Not Detected (Not Detect)
== END 2022-05-20 06:09 | disposition home or self-care (01) ==
PROVIDERS: Emergency Provider Internal Medicine
DX: F12.920 Cannabis use, unspecified with intoxication, uncomplicated (principal); R11.2 Nausea with vomiting, unspecified; R51.9 Headache, unspecified; Z79.899 Other long term (current) drug therapy
CPT/HCPCS: 36415; 80053; 80307; 81001; 83690; 85025; 99283; 99284

== ENCOUNTER 2022-08-19 07:25 | Emergency (ER) | payer OTHER, SELFPAY ==
[2022-08-19 07:29] VITALS: BP 129/67; PULSE 91; RESP 16; TEMP 36.5; O2SAT 98; BMI 27.1
--- NOTE | 2022-08-19 10:04 | PC.NURSE ---
Pt placed in room 5 however whilae awaiting provider eval, pt unable to be found. Noted to leave by another pt
== END 2022-08-19 10:05 | disposition left against medical advice (07) ==
PROVIDERS: Emergency Provider Emergency Medicine
DX: G43.909 Migraine, unspecified, not intractable, without status migrainosus (principal)
CPT/HCPCS: 99281

== ENCOUNTER 2022-08-22 14:03 | Emergency (ER) | payer OTHER, SELFPAY | END 2022-08-22 16:12 | disposition left against medical advice (07) | DX: S39.92XA Unspecified injury of lower back, initial encounter (principal); X58.XXXA Exposure to other specified factors, initial encounter; Y93.9 Activity, unspecified; Y92.9 Unspecified place or not applicable; Y99.9 Unspecified external cause status ==

== ENCOUNTER 2023-09-12 11:23 | Emergency (ER) | payer OTHER, SELFPAY ==
[2023-09-12 11:24] VITALS: BP 141/83; PULSE 85; RESP 18; TEMP 37.1; O2SAT 99; BMI 29.2
--- NOTE | 2023-09-12 11:25 | ED_ITS ---
HPI - General Adult General Chief complaint: Syncope Stated complaint: Syncope/Migraine/Dizzy Time Seen by Provider: 09/12/23 14:39 History of Present Illness HPI narrative: The patient is a 28-year-old male who says that he has not felt very well for about 4 days. He says he started feeling mildly unwell 4 days ago. Two days ago he started having diarrhea. When he woke up this morning he felt weak and dizzy. He recently started a new job. Today would have been his 2nd day on the job and so despite feeling unwell he went to work. While at work he felt dizzy and had a syncopal episode. This was associated with some blurriness in his vision. He also has a headache today. He says that he had a headache yesterday as well but today's headache was worse if earlier today although it is getting better. He has a history of migraines. He has photophobia. The patient reports that he last had a loose stool yesterday. It was light brown in color. He had some vomiting today. He says there were some streaks of blood in his emesis today. He has had no black stools. No neck stiffness. Related Data Previous Rx's Medication Instructions Recorded benzonatate 100 mg capsule 100 mg PO TID PRN cough 7 days #21 03/07/21 (Jalyn Rosas) caps ibuprofen 600 mg tablet 600 mg PO Q6H PRN pain 7 days #28 03/07/21 tabs loperamide 2 mg capsule (Imodium 2 mg PO Q6H PRN loose stool #14 04/27/22 A-D) caps ondansetron 4 mg disintegrating 4 mg PO Q8H 3 days #9 tabs 04/27/22 tablet ondansetron 4 mg disintegrating 4 mg PO Q8H PRN nausea and 04/27/22 tablet vomiting #10 tabs ondansetron 4 mg disintegrating 4 mg PO Q6-8H PRN nausea and 05/20/22 tablet vomiting #7 tabs ondansetron 4 mg disintegrating 4 mg PO Q6H PRN nausea and 09/12/23 tablet vomiting #10 tabs Allergies Allergy/AdvReac Type Severity Reaction Status Date / Time No Known Allergies Allergy Verified 09/12/23 11:28 Review of Systems 2 Review of Systems: Yes all other systems are reviewed and are negative FOR[facility]LY [facility], [facility] Past Medical History Medical History No known health problems Social History Social History Patient Tobacco Use Status: Current everyday Tobacco user Smoked in Last 30 Days: Yes Use of substances other than those prescribed or required for medical reasons: Yes Substance Use Type: Marijuana Substance Use Frequency: Occasionally Last Used Substance: Days (ago) Advance Directives: No Physical Exam ED Vital Signs: Vital Signs - 24 hr 09/12/23 11:24 09/12/23 14:26 09/12/23 15:16 Temperature 98.8 F Pulse Rate 85 80 Respiratory Rate 18 17 Blood Pressure 141/83 H 118/69 Pulse Oximetry 99 98 98 Oxygen Delivery Method Room Air Room Air BMI result Body Mass Index 29.2 Const Other: The patient is a well-developed 28-year-old who was awake and alert. He looks mildly under the weather but does not appear toxic. He is pleasant cooperative. Does not appear in pain or short breath. HENMT Other: Face is symmetrical. Mucous membranes moist. Eyes Other: Pupils are round, equal, and reactive to light. Funduscopic exam is unremarkable bilaterally. Extraocular movements are intact bilaterally. Neck Other: Neck is supple. No JVD. Resp Effort & Inspection: normal respiratory effort Auscultation: clear to auscultation bilaterally Cardio Rate: regular rate Heart sounds: S1 normal heart sound present and S2 normal heart sound present GI Other: Abdomen is soft and nontender Skin Other: Skin is dry and unremarkable Neuro Other: The patient is awake, alert, oriented, appropriate. Mental status is clear. Eye movements are normal. Funduscopic exam is normal. Face is symmetrical. Speech is clear. Neck is supple. Moving extremities normally. Grossly neurologically intact Extrem Other: The patient's calves are somewhat thick bilaterally but there is no asymmetry or tenderness. Course Course Course Narrative: This is a rapid medical exam: Additional HPI, ROS, PE not included below will be deferred to primary provider. Patient is a 28-year-old male presenting to the ED with complaint of syncopal episode this morning after work, lightheadedness, diarrhea for 2.5 days, nausea, headaches. Unsure if he hit head, syncope was unwitnessed. Plan: EKG, labs, viral swabs, UA Medications Administered Discontinued Medications Generic Name Dose Route Start Last Admin Trade Name Oliva PRN Reason Stop Dose Admin Acetaminophen 975 mg 09/12/23 15:13 09/12/23 16:03 Acetaminophen 325 Mg Tablet PO 09/12/23 15:14 975 mg ONCE ONE Administration Famotidine 40 mg 09/12/23 15:13 09/12/23 16:03 Famotidine 20 Mg Tablet PO 09/12/23 15:14 40 mg ONCE ONE Administration Ibuprofen 600 mg 09/12/23 15:13 09/12/23 16:03 Ibuprofen 600 Mg Tablet PO 09/12/23 15:14 600 mg ONCE ONE Administration Prochlorperazine Maleate 10 mg 09/12/23 15:13 09/12/23 16:03 Prochlorperazine Maleate 5 Mg Tablet PO 09/12/23 15:14 10 mg ONCE ONE Administration Medical Decision Making Medical Decision Making [facility] Narrative: The patient presents with a number of symptoms including diarrhea, a syncopal episode, dizziness, and headache. His vital signs are unremarkable and his general physical exam seems benign. Labs are unremarkable. My impression was that he might have some kind of a viral syndrome associated with a possible migraine headache. I ordered IV medications and fluids but the patient did not wish to receive anything IV. He asked for oral medications instead. He said that he did not need IV fluids because he has been keeping himself very well hydrated despite his vomiting. He was given ibuprofen, acetaminophen, prochlorperazine, and famotidine. He then requested discharge. He requested a work note. He was provided with a work note and advised to follow up with his regular doctor. He should return if worse. Lab Data 09/12/23 11:42 09/12/23 11:42 Labs: Lab Results 09/12/23 Range/Units 11:42 WBC 9.1 (4.8-10.8) X10*3/uL RBC 4.79 (4.60-5.80) X10*6/uL Hgb 13.9 L (14.0-18.0) g/dl Hct 42.0 (42.0-52.0) % MCV 87.7 (80.0-98.0) fL MCH 29.0 (27.0-33.0) pg MCHC 33.1 (31.0-36.0) g/dl RDW 12.4 (11.0-16.0) % Plt Count 275 (160-400) X10*3/uL MPV 9.1 L (9.4-12.4) fL Immature Gran % (Auto) 0.2 (0.0-0.4) % Neut % (Auto) 71.9 (45-73) % Lymph % (Auto) 19.7 L (20-40) % Dickenson % (Auto) 6.6 (2-11) % Eos % (Auto) 1.3 (0-4) % Baso % (Auto) 0.3 (0-2) % Lymph # (Auto) 1.8 (1.2-4.9) X10*3/uL Dickenson # (Auto) 0.6 (0.1-1.2) X10*3/uL Eos # (Auto) 0.1 (0.0-0.4) X10*3/uL Baso # (Auto) 0.0 (0.0-0.2) X10*3/uL Abs Immat Gran (auto) 0.02 (0.00-0.03) X10*3/uL Absolute Neuts (auto) 6.5 (2.0-8.3) x10*3/uL Absolute Nucleated RBC 0.000 (0.0-0.012) X10*3/uL Nucleated RBC % (auto) 0.0 (0.0-0.2) /100WBC Sodium 137 (135-145) mmol/L Potassium 4.1 (3.3-5.1) mmol/L Chloride 104 (96-108) mmol/L Carbon Dioxide 28 (22-29) mmol/L Anion Gap 9 L (12-20) BUN 15 (9-16) mg/dL Creatinine 0.86 (0.5-1.4) mg/dL Estim Creat Clear Calc 160.6 Estimated GFR > 60 Random Glucose 89 (60-115) mg/dL Calcium 9.5 (8.4-10.2) mg/dL Magnesium 1.9 (1.6-2.6) mg/dL Total Bilirubin 0.5 (0.0-1.0) mg/dL AST 17 (5-37) U/L ALT 17 (0-40) U/L Alkaline Phosphatase 84 (39-117) U/L Troponin I High Sens < 2.7 (<3.5-35.0) ng/L C-Reactive Protein 0.85 H (< or = 0.50) mg/dL Total Protein 7.9 (6.5-8.0) g/dL Albumin 4.4 (3.5-5.0) g/dL Influenza Type A (PCR) NEGATIVE (Negative) Influenza Type B (PCR) NEGATIVE (Negative) RSV RNA Qual (PCR) NEGATIVE (Negative) SARS-CoV-2 RNA (RT-PCR) NEGATIVE (Negative) Independent Interpretation I performed an independent interpretation of an: EKG Interpretation: EKG at 11:33 shows normal sinus rhythm at 74 beats per minute. It is a normal EKG. Discharge Plan Discharge Clinical Impression: Dizziness, Vomiting, Diarrhea, Headache Patient Disposition: Home, Self-Care Additional Instructions: Please rest and take it easy for the next couple of days. You may use the ondansetron prescribed as needed for nausea. Drink lot of fluids. Please contact the [facility] so you can establish a primary care provider. Return to the emergency room if significantly worse. Prescriptions: New ondansetron 4 mg tablet,disintegrating 4 mg PO Q6H PRN (Reason: nausea and vomiting) Qty: 10 0RF No Action ibuprofen 600 mg tablet 600 mg PO Q6H PRN (Reason: pain) 7 Days Qty: 28 0RF benzonatate [Tessalon Perles] 100 mg capsule 100 mg PO TID PRN (Reason: cough) 7 Days Qty: 21 0RF ondansetron 4 mg tablet,disintegrating 4 mg PO Q8H PRN (Reason: nausea and vomiting) Qty: 10 0RF loperamide [Imodium A-D] 2 mg capsule 2 mg PO Q6H PRN (Reason: loose stool) Qty: 14 0RF ondansetron 4 mg tablet,disintegrating 4 mg PO Q6-8H PRN (Reason: nausea and vomiting) Qty: 7 0RF ondansetron 4 mg tablet,disintegrating 4 mg PO Q8H 3 Days Qty: 9 0RF Referrals: [facility] [Provider Group] (28-year-old with frequent ER visits) Stand Alone Forms: Work/School Release Interventions: ED Discharge Assessment Last Done: 09/12/23 16:24 Discharge Date/Time: 09/12/23 16:30
--- NOTE | 2023-09-12 11:28 | ECG_ITS ---
Test Reason : syncope Blood Pressure : / mmHG Vent. Rate : 074 BPM Atrial Rate : 074 BPM P-R Int : 130 ms QRS Dur : 086 ms QT Int : 374 ms P-R-T Axes : 055 053 036 degrees QTc Int : 415 ms Normal sinus rhythm Normal ECG No previous ECGs available Referred By: Mariely Mehta Electronically Signed By:IRISH GARCÍA
[2023-09-12 11:46] LABS: MANUAL DIFF FLAG NO
[2023-09-12 11:48] LABS: Basophils Percent Auto 0.3 % (0-2); Eosinophils Absolute Auto 0.1 X10*3/uL (0.0-0.4); Eosinophils Percent Auto 1.3 % (0-4); Hemoglobin 13.9 g/dl (14.0-18.0); Imm Gran Abs Auto 0.02 X10*3/uL (0.00-0.03); Imm Gran Pct Auto 0.2 % (0.0-0.4); Lymphocytes Absolute Auto 1.8 X10*3/uL (1.2-4.9); Lymphocytes Percent Auto 19.7 % (20-40); Mean Corpuscular HGB Conc 33.1 g/dl (31.0-36.0); Mean Corpuscular Volume 87.7 fL (80.0-98.0); Mean Platelet Volume 9.1 fL (9.4-12.4); Monocytes Absolute Auto 0.6 X10*3/uL (0.1-1.2); Monocytes Percent Auto 6.6 % (2-11); Neutrophils Absolute Auto 6.5 x10*3/uL (2.0-8.3); Neutrophils Percent Auto 71.9 % (45-73); Platelet Count 275 X10*3/uL (160-400); Red Blood Count 4.79 X10*6/uL (4.60-5.80); Red Cell Distribution Width 12.4 % (11.0-16.0); White Blood Count 9.1 X10*3/uL (4.8-10.8)
[2023-09-12 12:05] LABS: Alanine Aminotransferase 17 U/L (0-40); Albumin Level 4.4 g/dL (3.5-5.0); Alkaline Phosphatase 84 U/L (39-117); Anion Gap 9 (12-20); Aspartate Amino Transferase 17 U/L (5-37); Bilirubin Total 0.5 mg/dL (0.0-1.0); Blood Urea Nitrogen 15 mg/dL (9-16); Calcium 9.5 mg/dL (8.4-10.2); Carbon Dioxide 28 mmol/L (22-29); Chloride 104 mmol/L (96-108); Creatinine Clr Calc Pharmacy 160.6; Estimated Glomerular Filt Rate > 60; Glucose Random 89 mg/dL (60-115); Magnesium 1.9 mg/dL (1.6-2.6); Potassium 4.1 mmol/L (3.3-5.1); Sodium 137 mmol/L (135-145); Total Protein 7.9 g/dL (6.5-8.0)
[2023-09-12 12:14] LABS: Troponin-I High Sensitivity < 2.7 ng/L (<3.5-35.0)
[2023-09-12 12:25] LABS: Influenza A PCR NEGATIVE (Negative); Influenza B PCR NEGATIVE (Negative); Resp Syncy Virus RNA Qual PCR NEGATIVE (Negative); SARS COV2 PCR INHOUSE NEGATIVE (Negative)
[2023-09-12 14:26] VITALS: BP 118/69; PULSE 80; RESP 17; O2SAT 98
[2023-09-12 15:16] VITALS: O2SAT 98
--- NOTE | 2023-09-12 15:16 | PC.NURSE ---
refused IV asked MD for po meds, awaiting new orders
[2023-09-12 15:17] LABS: C Reactive Protein 0.85 mg/dL (< or = 0.50)
[2023-09-12] MEDS: Acetaminophen 325 MG TABLET 975 MG PO (16:03)
[2023-09-12] MEDS: Famotidine 20 MG TABLET 40 MG PO (16:03)
[2023-09-12] MEDS: Ibuprofen 600 MG TABLET PO (16:03)
[2023-09-12] MEDS: Prochlorperazine Maleate 5 MG TABLET 10 MG PO (16:03)
--- NOTE | 2023-09-12 16:30 | PC.NURSE ---
DC paperwork reeviewed with patient, patient verbalized understanding. Escorted to waiting room.
== END 2023-09-12 16:30 | disposition home or self-care (01) ==
PROVIDERS: Registered Nurse Emergency; Emergency Provider Emergency Medicine
DX: R42 Dizziness and giddiness (principal); R55 Syncope and collapse; G43.909 Migraine, unspecified, not intractable, without status migrainosus; R11.2 Nausea with vomiting, unspecified; Z11.52 Encounter for screening for COVID-19; Z20.822 Contact with and (suspected) exposure to COVID-19; Z79.899 Other long term (current) drug therapy
CPT/HCPCS: 0241U; 36415; 80053; 83735; 84484; 85025; 86140; 93005; 99283; 99285

== ENCOUNTER → 2023-09-12 11:28 | Outpatient (BNV) | payer OTHER, SELFPAY | PROVIDERS: Emergency Provider Emergency Medicine; Visit Provider Internal Medicine | DX: R55 Syncope and collapse (principal) | CPT/HCPCS: 93010 ==

== ENCOUNTER 2024-03-01 04:14 | Emergency (ER) | payer OTHER, SELFPAY ==
[2024-03-01 04:26] VITALS: BP 143/83; PULSE 96; RESP 20; TEMP 36.9; O2SAT 99; BMI 31.9
--- NOTE | 2024-03-01 04:34 | ED_ITS ---
HPI - Skin/Abscess/Foreign Bdy General Chief complaint: Skin/Abscess/Foreign Body Stated complaint: back pain? Time Seen by Provider: 03/01/24 04:30 Source: patient Mode of arrival: ambulatory Limitations: no limitations History of Present Illness ED Provider: Dr. Niurka Guidry HPI narrative: Patient comes to the emergency room complaining of severe pain above his butt cheeks. Patient states that he has an abscess forming and he is unable to sleep due to the severe pain. Patient has never had an abscess before. Denies fever chills Related Data Previous Rx's ?Medication ?Instructions ?Recorded benzonatate 100 mg capsule 100 mg PO TID PRN cough 7 days #21 03/07/21 (Tessalon Ralph) caps ibuprofen 600 mg tablet 600 mg PO Q6H PRN pain 7 days #28 03/07/21 tabs loperamide 2 mg capsule (Imodium 2 mg PO Q6H PRN loose stool #14 04/27/22 A-D) caps ondansetron 4 mg disintegrating 4 mg PO Q8H 3 days #9 tabs 04/27/22 tablet ondansetron 4 mg disintegrating 4 mg PO Q8H PRN nausea and 04/27/22 tablet vomiting #10 tabs ondansetron 4 mg disintegrating 4 mg PO Q6-8H PRN nausea and 05/20/22 tablet vomiting #7 tabs ondansetron 4 mg disintegrating 4 mg PO Q6H PRN nausea and 09/12/23 tablet vomiting #10 tabs acetaminophen 500 mg tablet 500 mg PO QID PRN fever or pain 03/01/24 #14 tabs ibuprofen 600 mg tablet 600 mg PO TID PRN fever or pain 03/01/24 #14 tabs oxycodone 5 mg tablet 5 mg PO BID PRN pain #8 tabs 03/01/24 sulfamethoxazole 800 1 tab PO BID #14 tabs 03/01/24 mg-trimethoprim 160 mg tablet (Bactrim DS) Allergies Allergy/AdvReac Type Severity Reaction Status Date / Time No Known Allergies Allergy Verified 03/01/24 04:28 Review of Systems Review of Systems: Constitutional : No Weight loss, No Fever, No Chills, No Night Sweats, No Fatigue, No Malaise ENT/Mouth : No Hearing loss, No Ear Pain, No Nasal Congestion, No Sinus Pain, No Hoarseness, No sore throat, No Rhinorrhea, No Swallowing Difficulty Eyes: No Eye Pain, No Swelling, No Redness, No Foreign Body, No Discharge, No Vision Changes Cardiovascular : No Chest Pain, No SOB, No Dyspnea on Exertion, No Orthopnea, No Edema, No Palpitations Respiratory : No Cough, No Sputum, No Wheezing, No Smoke Exposure, No Dyspnea Gastrointestinal : No Nausea, No Vomiting, No Diarrhea, No Constipation, No abdominal Pain, No Hematochezia, No Melena Genitourinary : no irregular bleeding, No Dysuria, No Urinary Frequency, No Hematuria, No Urinary Incontinence, No Urgency, No Flank Pain, No Urinary Flow Changes, No Hesitancy Musculoskeletal : No joint pain, No Myalgias, No Joint Swelling Skin : Complaining of a cyst/abscess growing above his buttocks cleft Neuro : No Weakness, No Numbness, No Paresthesias, No Loss of Consciousness, No Dizziness, No Headache Psych : No Anxiety/Panic, No Depression, No SI/HI/AH/VH, No Social Issues, Heme/Lymph: No Bruising, No Bleeding,No Lymphadenopathy Endocrine : No Polyuria, No Polydipsia, No Temperature Intolerance PMFSH Past Medical History Medical History No known health problems Social History Social History Patient Tobacco Use Status: Current everyday Tobacco user Substance Use Type: Marijuana Physical Exam Vital Signs: Vital Signs: Last Vital Signs Temp 98.5 F 03/01/24 04:26 Pulse 96 03/01/24 04:26 Resp 20 03/01/24 04:26 BP 143/83 H 03/01/24 04:26 Pulse Ox 99 03/01/24 04:26 O2 Del Method Room Air 03/01/24 04:26 BMI result Body Mass Index 31.9 Const: Other: Appearance: Alert. Oriented X3. No acute distress. Eyes: Pupils equal, round and reactive to light. ENT: Pharynx normal. Neck: Normal inspection. Neck supple. No lymph nodes noted. No crepitus CVS: Normal heart rate and rhythm. Pulses normal. Normal S1 and S2 Respiratory: No respiratory distress. Breath sounds normal. No Wheezing. No rales Abdomen: Soft and nontender. No rigidity. No distention. Skin: Skin warm and dry. Normal skin color. Normal skin turgor. There is a growing cyst above the buttocks right above the cleft, erythematous, very tender to palpation. Extremities: No lower extremity edema. No Lacerations. No Rash Neuro: Oriented X 3. No motor deficit. No sensory deficit. Moving all extremities. No slurred speech. CN 2 through 12 grossly intact Psych: calm, cooperative, normal affect Course Course Course Narrative: -I discussed with the patient that this is likely a pilonidal cyst and needs to be drained. -patient agrees with plan -patient given p.o. oxycodone, p.o. Bactrim -the I and D was successful, a very large amount of dark brown pus was drained. Packing inserted -discussed with the patient and his than the patient is to return in 24-48 hours for wound check and packing removal. Procedures Abscess I/D Site: other (Pilonidal) Local Anesthetic: lidocaine 1% Amount of anesthesia used (mL): 20 Technique: incised with blade and ultrasound guided Amount of fluid expressed (mL): 100 Sent for culture/gram staining?: No Irrigation: Yes Packing used?: iodoform Discharge Plan Discharge Clinical Impression: Pilonidal cyst Patient Disposition: Home, Self-Care Instructions: Pilonidal Cyst (ED) Additional Instructions: Please follow-up with your primary care physician tomorrow. You need to return between 24-48 hours from now for packing removal and wound check. If you have any worsening or new symptoms, please return to the emergency room or call 911 Prescriptions: New sulfamethoxazole-trimethoprim [Bactrim DS] 800-160 mg tablet 1 tab PO BID Qty: 14 0RF oxycodone 5 mg tablet 5 mg PO BID PRN (Reason: pain) Qty: 8 0RF Rx Instructions: Partial Fill upon patient request. ibuprofen 600 mg tablet 600 mg PO TID PRN (Reason: fever or pain) Qty: 14 0RF acetaminophen 500 mg tablet 500 mg PO QID PRN (Reason: fever or pain) Qty: 14 0RF No Action ibuprofen 600 mg tablet 600 mg PO Q6H PRN (Reason: pain) 7 Days Qty: 28 0RF benzonatate [Tessalon Perles] 100 mg capsule 100 mg PO TID PRN (Reason: cough) 7 Days Qty: 21 0RF ondansetron 4 mg tablet,disintegrating 4 mg PO Q8H PRN (Reason: nausea and vomiting) Qty: 10 0RF loperamide [Imodium A-D] 2 mg capsule 2 mg PO Q6H PRN (Reason: loose stool) Qty: 14 0RF ondansetron 4 mg tablet,disintegrating 4 mg PO Q6-8H PRN (Reason: nausea and vomiting) Qty: 7 0RF ondansetron 4 mg tablet,disintegrating 4 mg PO Q8H 3 Days Qty: 9 0RF ondansetron 4 mg tablet,disintegrating 4 mg PO Q6H PRN (Reason: nausea and vomiting) Qty: 10 0RF Stand Alone Forms: Work/School Release Print Language: Frisian
[2024-03-01] MEDS: oxyCODONE HCl Immed Release 5 MG TABLET PO (04:40)
[2024-03-01] MEDS: Sulfamethox/Trimeth 800/160 TABLET 1 TAB PO (04:40)
[2024-03-01] MEDS: Lidocaine HCl 1 % 20 ML VIAL INFILTRATI (05:15)
--- NOTE | 2024-03-01 05:15 | PC.NURSE ---
and this RN at bedside draining cyst. pt tolerating well. pt medicated per mar, tolerated well with water.
[2024-03-01 05:28] VITALS: BP 143/83; PULSE 96; RESP 20; TEMP 36.9; O2SAT 99
== END 2024-03-01 05:28 | disposition home or self-care (01) ==
PROVIDERS: Emergency Provider Emergency Medicine
DX: L05.01 Pilonidal cyst with abscess (principal)
CPT/HCPCS: 10080; 99284

== ENCOUNTER 2024-11-28 22:37 | Emergency (ER) | payer OTHER, SELFPAY ==
--- NOTE | ~2024-11-28 | XR_ITS ---
CLINICAL HISTORY: Acute low back pain 3 views lumbar spine Comparison: None Findings: The vertebral body heights and disc spaces are well-maintained. No acute fracture or subluxation is identified. Alignment is within normal limits. IMPRESSION: No acute osseous abnormality is identified. This document has been electronically signed by: Jermaine Ma on 11/29/2024 05:11:18
[2024-11-28 22:40] VITALS: BP 139/85; PULSE 93; RESP 16; TEMP 36.7; O2SAT 98; BMI 31.0
--- NOTE | 2024-11-29 00:38 | ED.BACK ---
HPI - Back Pain/Injury General Chief Complaint: Back Pain/Injury Stated Complaint: back inj Time Seen by Provider: 11/29/24 00:35 Source: patient Mode of arrival: ambulatory Limitations: no limitations History of Present Illness ED Provider: HPI Narrative: Patient with no significant past medical history apparently was lifting about 50 lb of heavy boxes at 4 around 18:00 noticed diffuse back pain radiating to the thigh no paresthesia no tingling of the feet no weakness Related Data Previous Rx's ?Medication ?Instructions ?Recorded benzonatate 100 mg capsule 100 mg PO TID PRN cough 7 days #21 03/07/21 (Tessalon Ralph) caps ibuprofen 600 mg tablet 600 mg PO Q6H PRN pain 7 days #28 03/07/21 tabs loperamide 2 mg capsule (Imodium 2 mg PO Q6H PRN loose stool #14 04/27/22 A-D) caps ondansetron 4 mg disintegrating 4 mg PO Q8H 3 days #9 tabs 04/27/22 tablet ondansetron 4 mg disintegrating 4 mg PO Q8H PRN nausea and 04/27/22 tablet vomiting #10 tabs ondansetron 4 mg disintegrating 4 mg PO Q6-8H PRN nausea and 05/20/22 tablet vomiting #7 tabs ondansetron 4 mg disintegrating 4 mg PO Q6H PRN nausea and 09/12/23 tablet vomiting #10 tabs acetaminophen 500 mg tablet 500 mg PO QID PRN fever or pain 03/01/24 #14 tabs ibuprofen 600 mg tablet 600 mg PO TID PRN fever or pain 03/01/24 #14 tabs oxycodone 5 mg tablet 5 mg PO BID PRN pain #8 tabs 03/01/24 sulfamethoxazole 800 1 tab PO BID #14 tabs 03/01/24 mg-trimethoprim 160 mg tablet (Bactrim DS) cyclobenzaprine 10 mg tablet 10 mg PO Q8H #20 tabs 11/29/24 ibuprofen 600 mg tablet 600 mg PO Q6H PRN fever or pain 11/29/24 #30 tabs oxycodone 5 mg tablet 5 mg PO Q6H PRN pain #20 tabs 11/29/24 Allergies Allergy/AdvReac Type Severity Reaction Status Date / Time No Known Allergies Allergy Verified 11/28/24 22:41 Review of Systems Review of Systems: Yes all other systems are reviewed and are negative [facility] Past Medical History Medical History No known health problems Social History Social History Patient Tobacco Use Status: Current everyday Tobacco user Substance Use Type: Marijuana Advance Directives: No Do you have a plan to hurt others: No Plan Physical Exam Vital Signs: Vital Signs: Last Vital Signs Temp 98.6 F 11/29/24 03:14 Pulse 57 11/29/24 03:14 Resp 18 11/29/24 03:14 BP 110/69 11/29/24 03:14 Pulse Ox 97 11/29/24 03:14 O2 Del Method Room Air 11/29/24 03:14 BMI result Body Mass Index 31.0 Appearance: Alert. Oriented X3. No acute distress. Eyes: PERRLA, No Nystagmus ENT: Pharynx normal. Oral Mucosa moist Neck: Normal inspection. Neck supple. CVS: Normal heart rate and rhythm. Pulses normal. Respiratory: No respiratory distress. Equal air entry bilateral, no wheezing/rales/rhonchi Abdomen: Soft and nontender. Bowel sounds are present, no mass palpable, no CVA tenderness Skin: Skin warm and dry. Normal skin color. Normal skin turgor. Extremities: No lower extremity edema. No calf tenderness Back: Diffuse tenderness lumbar paraspinal area no midline tenderness SLR negative bilaterally sacral sensation intact Neuro: Oriented X 3. No motor deficit. No sensory deficit.No cerebellar signs , cranial nerves II-XII intact Medications Administered Discontinued Medications Generic Name Dose Route Start Last Admin Trade Name Freq PRN Reason Stop Dose Admin Cyclobenzaprine HCl 10 mg 11/29/24 00:41 11/29/24 00:46 Cyclobenzaprine Hcl 10 Mg Tablet PO 11/29/24 00:42 10 mg ONCE ONE Administration Dexamethasone 10 mg 11/29/24 02:07 11/29/24 02:25 Dexamethasone 2 Mg Tablet PO 11/29/24 02:08 10 mg ONCE ONE Administration Diazepam 5 mg 11/29/24 02:07 11/29/24 02:26 Diazepam 10 Mg/2 Ml Cartridge IM 11/29/24 02:08 5 mg STAT STA Administration Ketorolac Tromethamine 60 mg 11/29/24 01:42 11/29/24 01:49 Ketorolac Tromethamine 60 Mg/2 Ml Vial IM 11/29/24 01:43 60 mg ONCE ONE Administration Morphine Sulfate 15 mg 11/29/24 00:41 11/29/24 00:48 Morphine Sulfate Immed Release 15 Mg Tablet PO 11/29/24 00:42 15 mg ONCE ONE Administration Medical Decision Making Medical Decision Making [facility] Narrative: Patient with lumbar strain without any finding of spinal cord x-ray negative for vertebral fracture patient ambulatory in the ED will prescribe analgesics and muscle relaxer Discharge Plan Discharge Clinical Impression: Strain of lumbar region Patient Disposition: Home, Self-Care Instructions: Low Back Strain (ED) Additional Instructions: Rest at home Take pain medication muscle relaxant as prescribed Follow up with your PCP if not better Prescriptions: New cyclobenzaprine 10 mg tablet 10 mg PO Q8H Qty: 20 0RF oxycodone 5 mg tablet 5 mg PO Q6H PRN (Reason: pain) Qty: 20 0RF Rx Instructions: Partial Fill upon patient request. ibuprofen 600 mg tablet 600 mg PO Q6H PRN (Reason: fever or pain) Qty: 30 0RF No Action ibuprofen 600 mg tablet 600 mg PO Q6H PRN (Reason: pain) 7 Days Qty: 28 0RF benzonatate [Tessalon Perles] 100 mg capsule 100 mg PO TID PRN (Reason: cough) 7 Days Qty: 21 0RF ondansetron 4 mg tablet,disintegrating 4 mg PO Q8H PRN (Reason: nausea and vomiting) Qty: 10 0RF loperamide [Imodium A-D] 2 mg capsule 2 mg PO Q6H PRN (Reason: loose stool) Qty: 14 0RF ondansetron 4 mg tablet,disintegrating 4 mg PO Q6-8H PRN (Reason: nausea and vomiting) Qty: 7 0RF ondansetron 4 mg tablet,disintegrating 4 mg PO Q8H 3 Days Qty: 9 0RF ondansetron 4 mg tablet,disintegrating 4 mg PO Q6H PRN (Reason: nausea and vomiting) Qty: 10 0RF sulfamethoxazole-trimethoprim [Bactrim DS] 800-160 mg tablet 1 tab PO BID Qty: 14 0RF oxycodone 5 mg tablet 5 mg PO BID PRN (Reason: pain) Qty: 8 0RF Rx Instructions: Partial Fill upon patient request. ibuprofen 600 mg tablet 600 mg PO TID PRN (Reason: fever or pain) Qty: 14 0RF acetaminophen 500 mg tablet 500 mg PO QID PRN (Reason: fever or pain) Qty: 14 0RF Print Language: Vietnamese
[2024-11-29] MEDS: Cyclobenzaprine HCl 10 MG TABLET PO (00:46)
[2024-11-29] MEDS: Morphine Sulfate Immed Release 15 MG TABLET PO (00:48)
[2024-11-29 01:20] VITALS: BP 104/60; PULSE 58; RESP 18; TEMP 36.8; O2SAT 94
--- NOTE | 2024-11-29 01:21 | MHC.EDTECH ---
assumed care of pt
[2024-11-29] MEDS: Ketorolac Tromethamine 60 MG/2 ML VIAL IM (01:49)
[2024-11-29] MEDS: dexAMETHasone 2 MG TABLET 10 MG PO (02:25)
[2024-11-29] MEDS: diazePAM 10 MG/2 ML CARTRIDGE 5 MG IM (02:26)
[2024-11-29 03:14] VITALS: BP 110/69; PULSE 57; RESP 18; TEMP 37; O2SAT 97
[2024-11-29 05:56] VITALS: BP 112/79; PULSE 64; RESP 16; TEMP 36.4; O2SAT 98
== END 2024-11-29 05:57 | disposition home or self-care (01) ==
PROVIDERS: Emergency Provider Internal Medicine
DX: S39.012A Strain of muscle, fascia and tendon of lower back, initial encounter (principal); X50.0XXA Overexertion from strenuous movement or load, initial encounter; M54.50 Low back pain, unspecified; Y93.89 Activity, other specified; Y92.511 Restaurant or cafe as the place of occurrence of the external cause; Y99.0 Civilian activity done for income or pay
CPT/HCPCS: 72100; 96372; 99284; J1885; J3360; J8540

== ENCOUNTER → 2024-11-29 04:06 | Outpatient (BNV) | payer OTHER, SELFPAY | PROVIDERS: Emergency Provider Internal Medicine; Visit Provider Radiology Vascular & Interventional Radiology | DX: M54.50 Low back pain, unspecified (principal) | CPT/HCPCS: 72100 ==